=== PATIENT | female | born 1985 | race Caucasian/White ===

== ENCOUNTER 2018-06-27 20:14 | Emergency (ER) | payer OTHER ==
[~2018-06-27] VITALS: Ht 167.6 cm; Wt 59.0 kg
[2018-06-27] MEDS ORDERED: ONDANSETRON HCL INJ 2 MG/ML VIAL IV STA (20:46)
[2018-06-27] MEDS ORDERED: FAMOTIDINE 20 MG/2 ML VIAL IV STA (20:46)
[2018-06-27] MEDS ORDERED: SODIUM CHLORIDE 0.9% 1000ML 1,000 ML IV ONE (21:00)
== END 2018-06-27 22:25 | disposition home or self-care (01) ==
LOC: FSED 20:14
DX: R50.9 Fever, unspecified (principal); R10.9 Unspecified abdominal pain; R11.2 Nausea with vomiting, unspecified; B34.9 Viral infection, unspecified
CPT/HCPCS: 80053; 80076; 81003; 81025; 85025; 99283; J2405; J7030

== ENCOUNTER 2018-11-30 02:36 | Observation (INO) | payer OTHER ==
[~2018-11-30] VITALS: Ht 167.6 cm; Wt 59.0 kg
[2018-11-30] MEDS ORDERED: SODIUM CHLORIDE 0.9% 1000ML 1,000 ML IV SCH ×2 (03:00)
[2018-11-30] MEDS ORDERED: PROMETHAZINE 25MG/ NS 50ML (IV) IV ONE (03:00)
[2018-11-30] MEDS ORDERED: ONDANSETRON HCL INJ 2MG/ML 2ML 2 MG/ML VIAL IV STA (03:12)
[2018-11-30] MEDS ORDERED: PHENERGAN SUPP25 MG RC (03:19)
[2018-11-30] MEDS ORDERED: ONDANSETRON ODT8 MG PO (03:19)
[2018-11-30] MEDS ORDERED: KCL 40MEQ/0.9% SOD CHL 1,000 ML IV ONE (03:45)
[2018-11-30] MEDS ORDERED: SODIUM CHLORIDE 0.9% 1000ML 1,000 ML IV STA (03:50)
[2018-11-30] MEDS ORDERED: POTASSIUM CHLORIDE 10MEQ/100ML 100 ML IV ONE ×2 (04:00→05:00)
[2018-11-30] MEDS ORDERED: D5.45%NS/KCL 20MEQ 1,000 ML IV SCH (06:22)
[2018-11-30] MEDS ORDERED: ONDANSETRON HCL INJ 2MG/ML 2ML 2 MG/ML VIAL IV PRN (06:30)
[2018-11-30] MEDS ORDERED: METOCLOPRAMIDE HCL 10 MG/2ML VIAL IV ONE (06:30)
[2018-11-30] MEDS ORDERED: PROMETHAZINE 12.5MG/ NACL 0.9% 12.5 MG/50 ML BAG IV PRN (07:15)
--- NOTE | 2018-11-30 08:34 | NUR ---
Received report from EUGENIA Chavez. Awating for patient to arrive at facility.
--- NOTE | 2018-11-30 09:09 | NUR ---
Patient recieved at [facility]. No distress noted at this time. Will continue to monitor patient.
--- NOTE | 2018-11-30 11:10 | NUR ---
Walking rounds completed with Jalen BELLO, day shift nurse. Assumed care, pt in no acute distress at this time.
--- NOTE | 2018-11-30 13:33 | NUR ---
Call placed to Dr. Calderon's office regarding pt's wishes to not be admitted and leave the hospital. Spoke with answering service.
[2018-11-30 13:59] VITALS: BP 104/63
== END 2018-11-30 13:53 | disposition left against medical advice (07) ==
LOC: FSED 02:36 → ERHOLD 06:30
PROVIDERS: ADMIT Family Medicine; ATTEND Family Medicine
DX: E86.0 Dehydration (principal); E87.6 Hypokalemia; R11.2 Nausea with vomiting, unspecified; R19.7 Diarrhea, unspecified
CPT/HCPCS: 80053; 81003; 81025; 85025; 99284; G0378; J2405; J2550; J2765; J3480; J7030

== ENCOUNTER 2019-03-25 05:03 | Emergency (ER) | payer OTHER ==
[~2019-03-25] VITALS: Ht 167.6 cm; Wt 61.2 kg
[~2019-03-25 05:03] MED LIST: ONDANSETRON ODT8 MG PO; PHENERGAN SUPP25 MG RC
--- OUTSIDE RECORDS SUMMARY | 2019-03-25 05:05 | XMS REPORT | Continuity of Care Document ---
Author Author [facility] Organization [facility] Address Unknown Phone Unavailable Care Team Providers Care Motorcycle Mechanic Name Role Phone [employer] Information Zytoprotec Unavailable Unavailable Problems Problem Status Onset Date Classification Date Reported Comments Source Dysuria 01/16/2019 Diagnosis 01/16/2019 [facility] Medications Medication Details Route Status Patient Instructions Ordering Provider Order Date Source Fluoxetine 10 MG Oral Capsule fluoxetine 10 mg capsule TAKE 1 CAPSULE BY MOUTH EVERY DAY Active 01/16/2019 [facility] Ondansetron (Ondansetron Odt) 8 Mg Tab.rapdis Three Times A Day as needed for Vomiting Active [facility]all[facility] 11/30/2018 [facility] Promethazine Hcl (Phenergan Supp*) 25 Mg Supp Three Times A Day for Nausea, Vomiting Active Zeballos 11/30/2018 [facility] 24 HR Bupropion Hydrochloride 300 MG Extended Release Oral Tablet bupropion HCl XL 300 mg 24 hr tablet, extended release TAKE 1 TABLET BY MOUTH EVERY DAY IN THE MORNING Active [facility] NITROFURANTOIN, MACROCRYSTALS 25 MG / Nitrofurantoin, Monohydrate 75 MG Oral Capsule [Macrobid] Macrobid 100 mg capsule Take 1 capsule every 12 hours by oral route for 7 days. Active [facility] Propranolol Hydrochloride 20 MG Oral Tablet propranolol 20 mg tablet TAKE 1 TO 2 TABLETS BY MOUTH DAILY NEEDED FOR ANXIETY ATTACK Active [facility] Phenazopyridine hydrochloride 200 MG Oral Tablet [Pyridium] Pyridium 200 mg tablet Take 1 tablet 3 times a day by oral route for 3 days. Active [facility] Allergies, Adverse Reactions, Alerts No Known Medication Allergies Immunizations Immunization Date Given Site Status Last Updated Comments Source influenza, injectable, quadrivalent 06/26/2018 completed [facility] Tdap 09/26/2013 completed [facility] Results Order Name Results Value Reference Range Date Interpretation Comments Source Urinalysis macro (dipstick) panel - Urine LEUKOCYTES : Moderate 01/16/2019 [facility] Urinalysis macro (dipstick) panel - Urine NITRITES : Negative 01/16/2019 [facility] Urinalysis macro (dipstick) panel - Urine UROBILINOGEN : Normal 01/16/2019 [facility] Urinalysis macro (dipstick) panel - Urine PROTEIN : Trace 01/16/2019 [facility] Urinalysis macro (dipstick) panel - Urine pH : 7.5 01/16/2019 [facility] Urinalysis macro (dipstick) panel - Urine BLOOD : Large 01/16/2019 [facility] Urinalysis macro (dipstick) panel - Urine SPECIFIC GRAVITY : 1.000 01/16/2019 [facility] Urinalysis macro (dipstick) panel - Urine KETONES : Trace 01/16/2019 [facility] Urinalysis macro (dipstick) panel - Urine BILIRUBIN : Negative 01/16/2019 [facility] Urinalysis macro (dipstick) panel - Urine GLUCOSE Negative 01/16/2019 [facility] Pathology Reports No Data Provided for This Section Diagnostic Reports No Data Provided for This Section Consultation Notes No Data Provided for This Section Discharge Summaries No Data Provided for This Section History and Physicals No Data Provided for This Section Vital Signs Vital Sign Value Date Comments Source Diastolic (mm Hg) 74 01/16/2019 [facility] Height 66 01/16/2019 [facility] Systolic (mm Hg) 118 01/16/2019 [facility] Weight 130 01/16/2019 [facility] Encounters Location Location Details Encounter Type Encounter Number Reason For Visit Attending Provider ADM Date DC Date Status Source Departed Emergency Room [id number] CUAUHTEMOC DUPONT MD 06/27/2018 06[facility]27[facility] Dis[facility] (obs) [id number] KJ MAX MD 11/30/2018 11/30/2018 [facility] [place] [facility] - [id number] Driscoll, KIERAN-C: [address] [place] [address], Ph. [id number] Beverly Driscoll 01/16/2019 [facility] Procedures No Data Provided for This Section Assessment and Plan No Data Provided for This Section Plan of Care Plan of Care Date Source Discharge Date 11/30/18 1:53pm Disposition AGAINST MEDICAL ADVICE Instructions/Education Provided Diarrhea - Adult Vomiting - Adult Prescriptions See Medication Section 11/30/2018 [facility] Social History Social History Date Source Smoking Status Never Smoker 01/16/2019 [facility] Smoking Status Start Date Stop Date Never Smoker 11/30/2018 [facility] Family History No Data Provided for This Section Advance Directives Order Name Results Value Date Source Advance Directives Advance Directives Directive Response Recorded Date/Time Does the patient have an advance directive? No 06/27/18 8:41pm If yes, is advance directive on file with [facility]? No 06/27/18 8:41pm If not on file with [facility] will patient provide a copy? No 06/27/18 8:41pm Do you have a Directive to Physician? No 11/30/18 2:40am Do you have a Medical Power of Ambulatory Analyst? No 11/30/18 2:40am Do you have an out of hospital Do Not Resuscitate Order? No 11/30/18 2:40am Do you have any special needs we should be aware of? No 11/30/18 2:40am Do you have a support person here with you today? Yes 11/30/18 2:40am Did patient receive Notice of Privacy Practices? Yes 11/30/18 2:40am Did patient receive patient rights and responsibilities? Yes 11/30/18 2:40am 11/30/[facility] Functional Status No Data Provided for This Section
--- OUTSIDE RECORDS SUMMARY | 2019-03-25 05:06 | XMS REPORT | Encounter Summary ---
Author Organization Unknown Address [address] [place] [id number] Phone [phone] Reason for Visit Medical Complaint Instructions 1. Dysuria culture, urine urinalysis, dipstick painful urination (dysuria): care instructions Macrobid 100 mg capsule Pyridium 200 mg tablet Discussion Note: None recorded. Plan of Care Patient Instructions A urinary tract infection, or UTI, is a general term for an infection anywhere between the kidneys and the urethra (where urine comes out). Most UTIs are bladder infections. They often cause pain or burning when you urinate. UTIs are caused by bacteria and can be cured with antibiotics. Be sure to complete your treatment so that the infection goes away. How can you care for yourself at home? Take your antibiotics as directed. Do not stop taking them just because you feel better. You need to take the full course of antibiotics. Drink extra water and other fluids for the next day or two. This may help wash out the bacteria that are causing the infection. (If you have kidney, heart, or liver disease and have to limit fluids, talk with your doctor before you increase your fluid intake.) Avoid drinks that are carbonated or have caffeine. They can irritate the bladder. Urinate often. Try to empty your bladder each time. To relieve pain, take a hot bath or lay a heating pad set on low over your lower belly or genital area. Never go to sleep with a heating pad in place. To prevent UTIs Drink plenty of water each day. This helps you urinate often, which clears bacteria from your system. (If you have kidney, heart, or liver disease and have to limit fluids, talk with your doctor before you increase your fluid intake.) Urinate when you need to. Urinate right after you have sex. Change sanitary pads often. Avoid douches, bubble baths, feminine hygiene sprays, and other feminine hygiene products that have deodorants. After going to the bathroom, wipe from front to back. When should you call for help? Call your doctor now or seek immediate medical care if: Symptoms such as fever, chills, nausea, or vomiting get worse or appear for the first time. You have new pain in your back just below your rib cage. This is called flank pain. There is new blood or pus in your urine. You have any problems with your antibiotic medicine. Watch closely for changes in your health, and be sure to contact your doctor if: You are not getting better after taking an antibiotic for 2 days. Your symptoms go away but then come back. Reminders Provider Appointments None recorded. Lab Culture, Urine 01/16/2019 [facility] Urinalysis, Dipstick 01/16/2019 [facility] Referral None recorded. Procedures None recorded. Surgeries None recorded. Imaging None recorded. Medications Name Start Date bupropion HCl XL 300 mg 24 hr tablet, extended release TAKE 1 TABLET BY MOUTH EVERY DAY IN THE MORNING fluoxetine 10 mg capsule TAKE 1 CAPSULE BY MOUTH EVERY DAY 01/16/2019 Macrobid 100 mg capsule Take 1 capsule every 12 hours by oral route for 7 days. propranolol 20 mg tablet TAKE 1 TO 2 TABLETS BY MOUTH DAILY NEEDED FOR ANXIETY ATTACK Pyridium 200 mg tablet Take 1 tablet 3 times a day by oral route for 3 days. Medications Administered None recorded. Vitals Height Weight BMI Blood Pressure 5 ft 6 in 130 lbs 21 kg/m2 118/74 mm[Hg] Lab Results Date Name Specimen Result Interpretation Description Value Range Status Address 01/16/2019 Urinalysis, Dipstick Leukocytes : Moderate [facility]: [address] [place] [address] Nitrites : Negative [facility]: [address] [place] [address] Urobilinogen : Normal [facility]: [address] [place] [address] Protein : Trace [facility]: [address] [place] [address] Ph : [phone] [facility]: [address] [place] [address] Blood : Large [facility]: [address] [place] [address] Specific [place] : 1.000 [facility]: [address] [place] [address] Ketones : Trace [facility]: [address] [place] [address] Bilirubin : Negative [facility]: [address] [place] [address] Glucose Negative [facility]: [address] [place] [address] Allergies Code Code System Name Reaction Severity Status Onset NKDA Problems No Known Problems Procedures None recorded. Vaccine List Vaccine Type influenza, injectable, quadrivalent 06/26/2018 Tdap 09/26/2013 Social History Smoking Status Never Smoker Past Encounters 01/16/2019 Dysuria Beverly Driscoll [facility]: [address] [facility], [place] [address], Ph. History of Present Illness [id number] Reported By: Patient HPI: Quality: pressure, itching. Severity: moderate. Duration: started 01/13/2019. Onset/Timing: gradual. Context: no known exposure to STD, no prior history of STDs, sexually active, unprotected intercourse, LMP01/09/2019. Modifying factors OTC medication. Associated Symptoms: no fever/chills, no flank pain, no pain during urination, no vaginal discharge, no blisters on genitals, no rash on genitals, no headache, blood in the urine, urgency, feeling of incomplete emptying of bladder Review of Systems Basic Reported By: Patient Physical Exam Adult Basic, Adult Female Complete Reported By: Patient Constitutional: General Appearance: healthy-appearing, well-nourished, well-developed. Level of Distress: NAD. Ambulation: ambulating normally Psychiatric: Mental Status: active and alert. Orientation: to time, to place, to person Lungs: Respiratory effort: no dyspnea, no tachypnea, no use of accessory muscles, no intercostal retractions. Auscultation: breath sounds normal Cardiovascular: Heart Auscultation: RRR, no murmurs Abdomen: Inspection and Palpation: soft, non-distended, no tenderness, no guarding, no rebound tenderness, no masses, no CVA tenderness
[2019-03-25] MEDS ORDERED: ONDANSETRON HCL INJ 2MG/ML 2ML 2 MG/ML VIAL IV STA (05:09)
[2019-03-25] MEDS ORDERED: SODIUM CHLORIDE 0.9% 1000ML 1,000 ML IV SCH (05:15)
[2019-03-25] MEDS ORDERED: PANTOPRAZOLE 40 MG 10ML VIAL IV STA (05:20)
[2019-03-25] MEDS ORDERED: SODIUM CHLORIDE 0.9% 1000ML 1,000 ML ONE (05:34)
[2019-03-25] MEDS ORDERED: ONDANSETRON HCL INJ 2MG/ML 2ML 2 MG/ML VIAL ONE (05:34)
[2019-03-25] MEDS ORDERED: PROMETHAZINE HCL (IM) 25 MG/ML VIAL ONE (05:54)
[2019-03-25] MEDS ORDERED: PROMETHAZINE 25MG/ NS 50ML (IV) IV ONE (06:00)
[2019-04-24] MEDS ORDERED: FLUOXETINE HCL20 MG PO (08:39)
[2019-04-24] MEDS ORDERED: WELLBUTRIN SR150 MG PO (08:39)
[2019-04-24] MEDS ORDERED: XIFAXAN550 MG PO (08:39)
[2019-04-30] MEDS ORDERED: PROPRANOLOL HCL10 MG PO (09:10)
== END 2019-03-25 06:42 | disposition home or self-care (01) ==
LOC: FSED 05:03
DX: R11.2 Nausea with vomiting, unspecified (principal); R19.7 Diarrhea, unspecified; R10.13 Epigastric pain; A09 Infectious gastroenteritis and colitis, unspecified; A08.4 Viral intestinal infection, unspecified
CPT/HCPCS: 80048; 81003; 81025; 85025; 99283; J2405; J2550; J7030

== ENCOUNTER → 2019-04-30 | Day surgery (SDC) | payer OTHER ==
[~2019-04-30] MED LIST changes: +FENTANYL CITRATE/PF 100MCG/2 ML INJ ONE; +FLUOXETINE HCL20 MG PO; +MIDAZOLAM HCL 2 MG/2 ML VIAL ONE; +PROPOFOL IV EMULSION 10 MG/ML 50 ML VIAL ONE; +PROPRANOLOL HCL10 MG PO; +SIMETHICONE 40 MG/0.6 ML BTL ONE; +WELLBUTRIN SR150 MG PO; +XIFAXAN550 MG PO
--- OUTSIDE RECORDS SUMMARY | 2019-04-30 07:25 | XMS REPORT | Continuity of Care Document ---
Author Author [employer] Organization [employer] Address Unknown Phone Unavailable Care Team Providers Care Natural Resource Specialist Name Role Phone [employer] Information [employer] Unavailable Unavailable Problems Problem Status Onset Date [...] as needed for Vomiting Active Zeballos 11/30/2018 [facility] Promethazine Hcl (Phenergan Supp*) 25 Mg Supp Three Times A Day for Nausea, Vomiting Active Zeballos 11/30/2018 [facility] 24 HR Bupropion Hydrochloride 300 MG Extended [...] DC Date Status Source Departed Emergency Room [id number] CUAUHTEMOC DUPONT MD 06/27/2018 06/27/2018 [facility] Discharged Inpatient (obs) [id number] JK MAX MD 11/30/2018 11/30/2018 [facility] [place] - [facility] - [id number] Driscoll, KIERAN-C: [address] [place] [address], Ph. [id number] Beverly Driscoll 01/16/2019 [facility] Procedures No Data Provided for This Section Assessment and Plan No Data Provided for This Section Plan of Care Plan of Care Date Source Discharge Date 11/30/18 1:53pm Disposition AGAINST MEDICAL ADVICE Instructions/Education Provided Diarrhea - Adult Vomiting - Adult Prescriptions See Medication Section 11/30/2018 [facility] Social History Social History Date Source Smoking Status Never Smoker 01/16/2019 [facility] Smoking Status Start Date Stop Date Never Smoker 11/30/2018 [facility] Family History No Data Provided for This Section Advance Directives Order Name Results Value Date Source Advance Directives Advance Directives Directive Response Recorded Date/Time Does the patient have an advance directive? No 06/27/18 8:41pm If yes, is advance directive on file with [facility]? No 06/27/18 8:41pm If not on file with [facility] will patient provide a copy? No 06/27/18 8:41pm Do you have a Directive to Physician? No 11/30/18 2:40am Do you have a Medical Power of Hay Farmer? No 11/30/18 2:40am Do you have an [...] rights and responsibilities? Yes 11/30/18 2:40am 11/30/2018 [facility] Functional Status No Data Provided for This Section
[2019-04-30 12:20] VITALS: BP 116/70
--- NOTE | 2019-04-30 16:24 | Operative Report ---
DATE OF PROCEDURE: 04/30/2019 SURGEON: Gilmer Blair MD PROCEDURES: EGD with biopsies. INDICATIONS FOR EGD: Heartburn, bloating, and nausea. MEDICATIONS: The patient was done under MAC, please see anesthesiologist's note. PROCEDURE IN DETAIL: With the patient in left lateral decubitus position, a flexible fiberoptic Olympus gastroscope was introduced into the esophagus under direct visualization without any difficulty. There was some patchy erythema noted in distal esophagus. A minute nodule was noted at the GE junction that was biopsied. The scope was then advanced with ease into the stomach, traversing a small sliding hiatal hernia. The mucosa overlying the antrum and the body revealed some patchy erythema and low-grade to moderate edema and biopsies were obtained and sent to stain for H. pylori. Pylorus was of normal contour and shape, was intubated with ease and the scope was advanced all the way to the second portion of the duodenum. Biopsies were obtained from the second portion and the duodenal bulb to rule out sprue. The scope was then withdrawn back into the stomach and retroflexed and mucosa overlying the fundus and the cardia appeared to be within normal limits. The scope was then straightened out, it was subsequently withdrawn, and the patient the tolerated procedure well. IMPRESSION: 1. Distal esophagitis, mild. 2. Minute nodule, GE junction, biopsied. 3. Small sliding hiatal hernia. 4. Gastritis, biopsied, biopsies sent to stain for Helicobacter pylori. 5. Rule out sprue. PLAN: Follow up histology. Initiate Protonix 40 mg one p.o. q.a.m. before meals. Gilmer Blair MD [facility] /[id number] cc: Mando Orr DO
== END | disposition home or self-care (01) ==
LOC: OR 07:24
PROVIDERS: ATTEND Internal Medicine Gastroenterology
DX: K21.0 Gastro-esophageal reflux disease with esophagitis (principal); K29.50 Unspecified chronic gastritis without bleeding; K44.9 Diaphragmatic hernia without obstruction or gangrene; K52.9 Noninfective gastroenteritis and colitis, unspecified
CPT/HCPCS: 43239; 81025; J2250; J2704; J3010

== ENCOUNTER 2019-05-13 02:58 | Emergency (ER) | payer OTHER ==
[~2019-05-13] VITALS: Ht 167.6 cm; Wt 63.5 kg
[~2019-05-13 02:58] MED LIST changes: -FENTANYL CITRATE/PF 100MCG/2 ML INJ ONE; -MIDAZOLAM HCL 2 MG/2 ML VIAL ONE; -PROPOFOL IV EMULSION 10 MG/ML 50 ML VIAL ONE; -SIMETHICONE 40 MG/0.6 ML BTL ONE
--- OUTSIDE RECORDS SUMMARY | 2019-05-13 03:01 | XMS REPORT | Continuity of Care Document ---
Author Author [email or web address] Organization [email or web address] Address Unknown Phone Unavailable Care Team Providers Care Manager Pacu Name Role Phone [employer] Information [employer] Unavailable Unavailable Problems Problem Status Onset Date [...] as needed for Vomiting Active Zeballos 11/30/2018 [facility] Promethazine Hcl (Phenergan Supp*) 25 Mg Supp Three Times A Day for Nausea, Vomiting Active Zeballos 11/30/2018 [facility] 24 HR Bupropion Hydrochloride 300 MG [...] DC Date Status Source Departed Emergency Room [id number] CUAUHTEMOC DUPONT MD 06/27/2018 06/27/2018 [facility] Discharged Inpatient (obs) [id number] KJ MAX MD 11/30/2018 11/30/2018 [facility] [place] - [facility] - [id number] Driscoll, KIERAN-C: [address] [place] [address], Ph. [id number] Beverly Driscoll 01/16/2019 [facility] Procedures No Data Provided for This Section Assessment and Plan No Data Provided for This Section Plan of Care Plan of Care Date Source Discharge Date 11/30/18 1:53pm Disposition AGAINST MEDICAL ADVICE Instructions/Education Provided Diarrhea - Adult Vomiting - Adult Prescriptions See Medication Section 11/30/2018 [facility] Social History Social History Date Source Smoking Status Never Smoker 01/16/2019 [facility] Smoking Status Start Date Stop Date Never Smoker 11/30/2018 [facility] Family History No Data Provided for This Section Advance Directives Order Name Results Value Date Source Advance Directives Advance Directives Directive Response Recorded Date/Time Does the patient have an advance directive? No 06/27/18 8:41pm If yes, is advance directive on file with [facility]? No 06/27/18 8:41pm If not on file with [facility] will patient provide a copy? No 06/27/18 8:41pm Do you have a Directive to Physician? No 11/30/18 2:40am Do you have a Medical Power of Digital Product Manager? No 11/30/18 2:40am Do you have an [...] rights and responsibilities? Yes 11/30/18 2:40am 11/30/2018 [facility] Functional Status No Data Provided for This Section
[2019-05-13] MEDS ORDERED: PROMETHAZINE 25MG/ NS 50ML (IV) IV STA (03:22)
[2019-05-13] MEDS ORDERED: PROMETHAZINE HCL (IM) 25 MG/ML VIAL ONE (03:28)
[2019-05-13] MEDS ORDERED: SODIUM CHLORIDE 0.9% 1000ML 1,000 ML ONE (03:29)
[2019-05-13] MEDS ORDERED: SODIUM CHLORIDE 0.9% 1000ML 1,000 ML IV SCH (03:30)
[2019-05-13] MEDS ORDERED: DONNATAL/LIDOCAINE/MAALOX 30 ML SUSP PO STA (04:20)
[2019-05-13] MEDS ORDERED: LIDOCAINE VISC 2% SOLN 15 ML UDC ONE (04:24)
[2019-05-13] MEDS ORDERED: BELLADONNA ALK/PHENOBARBITAL 5 ML UDC ONE (04:24)
== END 2019-05-13 04:45 | disposition home or self-care (01) ==
LOC: FSED 02:58
DX: R11.2 Nausea with vomiting, unspecified (principal); N80.9 Endometriosis, unspecified; F32.9 Major depressive disorder, single episode, unspecified
CPT/HCPCS: 80048; 80076; 81025; 85025; 99283; J2550; J7030

== ENCOUNTER 2020-12-30 21:07 | Emergency (ER) | payer OTHER ==
[~2020-12-30] VITALS: Ht 167.6 cm; Wt 68.0 kg
[2020-12-30] MEDS ORDERED: SODIUM CHLORIDE 0.9% 1000ML 1,000 ML IV STA (21:25)
[2020-12-30] MEDS ORDERED: PROMETHAZINE 12.5MG/ NACL 0.9% 12.5 MG/50 ML BAG IV PRN (21:30)
[2020-12-30] MEDS ORDERED: PANTOPRAZOLE 40 MG 10ML VIAL IV STA (21:35)
[2020-12-30] MEDS ORDERED: SODIUM CHLORIDE 0.9% 1000ML 1,000 ML ONE (21:39)
[2020-12-30] MEDS ORDERED: PROMETHAZINE HCL (IM) 25 MG/ML VIAL IM ONE (21:39)
[2020-12-30] MEDS ORDERED: MORPHINE SULFATE INJ 4 MG/ML INJ 1ML IV ONE (21:45)
[2020-12-30] MEDS ORDERED: MORPHINE SULFATE INJ 4 MG/ML INJ 1ML ONE (22:14)
[2020-12-30] MEDS ORDERED: PANTOPRAZOLE 40 MG 10ML VIAL ONE (22:14)
[2020-12-30] MEDS ORDERED: ONDANSETRON ODT4 MG PO (23:19)
[2020-12-30] MEDS ORDERED: PANTOPRAZOLE SO40 MG PO (23:19)
[2020-12-30] MEDS ORDERED: PROMETHAZINE HC25 M1 PO (23:19)
== END 2020-12-30 23:35 | disposition home or self-care (01) ==
LOC: FSED 21:30
DX: R10.13 Epigastric pain (principal); R10.31 Right lower quadrant pain; R11.2 Nausea with vomiting, unspecified; K29.00 Acute gastritis without bleeding; N80.9 Endometriosis, unspecified
CPT/HCPCS: 74176; 76705; 80053; 85025; 99284; C9113; J2270; J2550; J7030